=== PATIENT | male | born 1950 | race Caucasian/White ===

== ENCOUNTER 2017-12-09 06:23 | Observation (INO) | payer MEDICARE ==
[2017-12-08 13:32] VITALS: BP 129/76
[2017-12-08 13:39] LABS: BASOPHILS # (AUTO) 0.02 x10^3/uL (0-0.1); BASOPHILS % (AUTO) 0 % (0-1); EOSINOPHILS # (AUTO) 0.13 x10^3/uL (0-0.4); EOSINOPHILS % (AUTO) 2 % (1-7); LYMPHOCYTES # (AUTO) 2.27 x10^3/uL (1-3.4); LYMPHOCYTES % (AUTO) 29 % (22-44); MD NO; MEAN CORPUSCULAR HEMOGLOBIN 33.3 pg (27.5-34.5); MEAN CORPUSCULAR HGB CONC 34.4 g/dL (33.2-36.2); MEAN CORPUSCULAR VOLUME 96.9 fL (81-97); MEAN PLATELET VOLUME 6.8 fL (7.4-10.4); MONOCYTES # (AUTO) 0.69 x10^3/uL (0.2-0.8); MONOCYTES % (AUTO) 9 % (2-9); NEUTROPHILS # (AUTO) 4.68 x10^3/uL (1.8-6.8); NEUTROPHILS % (AUTO) 60 % (42-75); PLATELET COUNT 326 x10^3/uL (130-400); RED BLOOD COUNT 4.43 x10^6/uL (4.38-5.82); RED CELL DISTRIBUTION WIDTH 12.8 % (9.4-14.8)
[2017-12-08 13:48] LABS: INTERNATIONAL NORMALIZED RATIO 0.98 (0.93-1.1); PROTHROMBIN TIME 10.2 Seconds (9.6-11.5)
[2017-12-08 13:49] LABS: ALANINE AMINOTRANSFERASE 23 U/L (12-78); ALBUMIN 4.2 g/dL (3.4-5.0); ANION GAP 10 mmol/L (5-15); CALCIUM 8.8 mg/dL (8.5-10.1); CHLORIDE 104 mmol/L (98-107); CREATININE 1.56 mg/dL (0.7-1.3)
[2017-12-08 13:51] LABS: ALKALINE PHOSPHATASE 72 U/L (45-117); BILIRUBIN,TOTAL 1.1 mg/dL (0.2-1.0); TOTAL PROTEIN 7.8 g/dL (6.4-8.2)
[~2017-12-09] VITALS: Ht 177.8 cm; Wt 82.3 kg
[~2017-12-09 06:23] MED LIST: ASPI-496 PO; CHOL5000 PO; DIGO250T PO; DILT240C PO; KELP1TAB PO; LEVO112T4 PO; MAGN100T PO; MECL25TA4 PO; VITA1CAP PO
[2017-12-09] MEDS ORDERED: SODIUM CHLORIDE 0.9% 1,000 ML IV SCH (06:42)
[2017-12-09] MEDS ORDERED: SODIUM CHLORIDE 0.9% 1,000 ML IV ONE (07:00)
[2017-12-09] MEDS ORDERED: FENTANYL PF 250 MCG/5ML ONE (07:07)
[2017-12-09] MEDS ORDERED: MIDAZOLAM 1 MG/ML, 2ML ONE (07:07)
[2017-12-09] MEDS ORDERED: HEPARIN 1,000 UNITS/ML, 10ML ONE (07:39)
[2017-12-09] MEDS ORDERED: PROTAMINE SULFATE 10 MG/ML, 5ML ONE (07:39)
[2017-12-09] MEDS ORDERED: LIDOCAINE 2%, 20ML ONE ×2 (07:50→07:58)
[2017-12-09] MEDS ORDERED: ONDANSETRON 2MG/ML, 2ML ONE (08:03)
[2017-12-09] MEDS ORDERED: PROPOFOL 10 MG/ML, 20ML ONE (08:03)
[2017-12-09] MEDS ORDERED: DEXAMETHASONE 4 MG/ML, 1ML ONE (08:03)
[2017-12-09] MEDS ORDERED: ROCURONIUM 10 MG/ML,10ML ONE (08:03)
[2017-12-09] MEDS ORDERED: SUCCINYLCHOLINE 20 MG/ML, 10ML ONE (08:03)
[2017-12-09] MEDS ORDERED: FENTANYL PF 100 MCG/2ML ONE (10:22)
[2017-12-09] MEDS ORDERED: ACETAMINOPHEN 325 MG TABLET PO PRN (10:30)
[2017-12-09] MEDS ORDERED: ZOLPIDEM 5MG TABLET PO PRN (10:30)
[2017-12-09] MEDS ORDERED: FENTANYL PF 100 MCG/2ML IV PRN (11:00)
[2017-12-09] MEDS ORDERED: METOCLOPRAMIDE 5 MG/ML, 2ML IV PRN (11:00)
[2017-12-09] MEDS ORDERED: LABETALOL 5MG/ML, 20ML IV PRN (11:00)
[2017-12-09] MEDS ORDERED: ONDANSETRON 2MG/ML, 2ML IVPush PRN ×2 (11:00→15:30)
[2017-12-09] MEDS ORDERED: OXYcodone 5 MG/5 ML ORAL.SOL UDC PO PRN (11:00)
[2017-12-09] MEDS ORDERED: PROMETHAZINE 25 MG/ML, 1ML IV PRN (11:00)
[2017-12-09] MEDS ORDERED: EPHEDRINE 50 MG/ML, 1ML IVPush PRN (11:00)
[2017-12-09] MEDS: HYDROmorphone 1 MG/ML, 1ML IV PRN ×3 (11:13→13:47)
[2017-12-09] MEDS ORDERED: HYDROmorphone 2 MG/ML, 1ML ONE (11:14)
[2017-12-09] MEDS ORDERED: LORazepam 2 MG/ML, 1ML ONE (11:17)
[2017-12-09] MEDS: LORazepam 2 MG/ML, 1ML IVPush PRN ×2 (11:23→13:47)
[2017-12-09 14:15] VITALS: BP 105/69
[2017-12-09] MEDS: APIXABAN 5 MG TABLET PO SCH ×2 (14:54→22:55)
[2017-12-09] MEDS ORDERED: DIPHENHYDRAMINE 12.5MG/5ML, 10ML UDC PO PRN (15:30)
[2017-12-09 20:00] LABS: ANION GAP 11 mmol/L (5-15); CALCIUM 8.2 mg/dL (8.5-10.1); CHLORIDE 106 mmol/L (98-107); CREATININE 1.85 mg/dL (0.7-1.3)
[2017-12-09 20:56] VITALS: BP 119/69
[2017-12-10 02:25] VITALS: BP 97/57
[2017-12-10] MEDS ORDERED: DILTIAZEM 240 MG CAP.ER.24H ONE (07:51)
[2017-12-10] MEDS ORDERED: CHOLECALCIFEROL 1,000 UNIT TABLET ONE (07:51)
[2017-12-10] MEDS ORDERED: MAGNESIUM OXIDE 400 MG TABLET ONE (07:51)
[2017-12-10] MEDS ORDERED: MULTIVITAMIN 1 TABLET ONE (07:52)
[2017-12-10] MEDS ORDERED: APIX5TAB PO (07:52)
[2017-12-10] MEDS ORDERED: DIGOXIN 0.25 MG TABLET ONE (07:52)
[2017-12-10] MEDS ORDERED: MULTIVITS,STRESS FORMULA 1 TABLET ONE (07:55)
[2017-12-10] MEDS ORDERED: LEVOTHYROXINE 112 MCG TABLET ONE (07:57)
[2017-12-10 08:04] VITALS: BP 109/66
[2017-12-10] MEDS: APIXABAN 5 MG TABLET PO SCH (08:07)
[2017-12-10] MEDS ORDERED: DILTIAZEM 240 MG CAP.ER.24H PO SCH (09:00)
[2017-12-10] MEDS ORDERED: LEVOTHYROXINE 112 MCG TABLET PO SCH (09:00)
[2017-12-10] MEDS ORDERED: MECLIZINE CHEWABLE 25 MG TAB PO PRN (09:00)
[2017-12-10] MEDS ORDERED: CHOLECALCIFEROL 1,000 UNIT TABLET PO SCH (09:00)
[2017-12-10] MEDS ORDERED: KELP PO SCH (09:00)
[2017-12-10] MEDS ORDERED: DIGOXIN 0.25 MG TABLET PO SCH (09:00)
[2017-12-10] MEDS ORDERED: MULTIVITS,STRESS FORMULA 1 TABLET PO SCH (09:00)
[2017-12-10] MEDS ORDERED: MAGNESIUM OXIDE 400 MG TABLET PO SCH (09:00)
== END 2017-12-10 09:30 | disposition home or self-care (01) ==
LOC: CACL 06:23 → ORIP 10:12 → 5SO 14:15 → DCLOUNGE 12-10 09:27
PROVIDERS: ADMIT Internal Medicine Cardiovascular Disease; ATTEND Internal Medicine Cardiovascular Disease
DX: I48.91 Unspecified atrial fibrillation (principal); I48.92 Unspecified atrial flutter; Z79.01 Long term (current) use of anticoagulants
CPT/HCPCS: 36415; 80048; 80053; 85025; 85347; 85610; 85730; 93308; 93312; 93321; 93325; 93613; 93655; 93656; 93662; 96374; C1730; C1731; C1732; C1759; C1766; C1893; C1894; G0378; J0330; J1100; J1170; J1644; J2060; J2250; J2405; J2704; J2720; J3010; J3490